=== PATIENT | female | born 1970 | race Caucasian/White ===

== ENCOUNTER 2024-01-12 08:24 | Inpatient (IN) | payer MEDICAID, OTHER ==
[~2024-01-12] VITALS: Ht 152.4 cm; Wt 70.0 kg
[2024-01-12] MEDS: ONDANSETRON HCL 4 MG/2 ML VIAL IV ONE (09:30)
[2024-01-12] MEDS: SODIUM CHLORIDE 0.9% 1,000 ML IV ONE ×2 (09:32→15:47)
[2024-01-12] MEDS: MORPHINE SULFATE 4 MG/ML SYR/VIAL IV ONE (09:36)
[2024-01-12] MEDS: FAMOTIDINE (10MG/ML) 2ML VL IV ONE (09:36)
[2024-01-12 09:39] LABS: Urine Bacteria FEW /hpf (None Seen); Urine Blood 3+ /uL (Negative); Urine Clarity Turbid (Clear); Urine Color Light-Yellow (Yellow); Urine Mucus FEW (None Seen); Urine Protein, UAD 1+ (Negative); Urine Specific Gravity 1.024 (1.001-1.035); Urine Urobilinogen Normal (Negative); Urine WBC 125 /hpf (0 - 5)
[2024-01-12 09:41] VITALS: PULSE 79; RESP 61; O2SAT 99
[2024-01-12 09:57] LABS: Basophils # (auto) 0 10 ^3/uL (0-0.2); Basophils % (auto) 0.4 % (0.0-2.0); Eosinophils # (auto) 0.1 10 ^3/uL (0-0.8); Eosinophils % (auto) 0.9 % (0.0-7.0); Hematocrit 41.8 % (36.0-46.0); Hemoglobin 13.7 g/dL (12.2-16.2); Lymphocytes % (auto) 10.6 % (10.0-50.0); Mean Corpuscular Hemoglobin 26.8 pg (28.0-32.0); Mean Corpuscular Hgb Conc. 32.8 g/dL (32.0-36.0); Mean Corpuscular Volume 81.9 fL (80.0-100.0); Monocytes # (auto) 0.6 10 ^3/uL (0-1.3); Monocytes % (auto) 5.7 % (0.0-12.0); Neutrophils # (auto) 8.1 10 ^3/uL (1.6-8.6); Neutrophils % (auto) 82.4 % (37.0-80.0); Platelet Count (auto) 336 10^3/uL (140-450); Red Cell Distribution Width 14.7 % (11.8-14.3); White Blood Cell 9.8 10^3/uL (4.4-10.8)
[2024-01-12] MEDS ORDERED: IOHEXOL 300 MG/ML 100ML BOTTLE IJ ONE (10:14)
[2024-01-12 10:34] LABS: Alanine Aminotransferase 160 U/L (7-40); Albumin 4.9 g/dL (3.2-4.8); Alkaline Phosphatase 213 U/L (46-116); Anion Gap 7 (5-15); Aspartate Aminotransferase 34 U/L (13-40); BUN/Creatinine Ratio 15.3 (10.0-20.0); Blood Urea Nitrogen 15 mg/dL (9-23); Calcium 9.9 mg/dL (8.7-10.4); Carbon Dioxide 24 mmol/L (20-30); Chloride 108 mmol/L (98-107); Glucose 147 mg/dL (74-106); Lipase 42 U/L (12-53); Potassium 3.9 mmol/L (3.5-5.1); Sodium 139 mmol/L (136-145)
[2024-01-12 10:35] LABS: Bilirubin, Total 0.4 mg/dL (0.2-1.0); Total Protein 7.6 g/dL (5.7-8.2)
[2024-01-12] MEDS: cefTRIAXone 1GM/50ML D5W 50 ML IV ONE (15:59)
[2024-01-12] MEDS ORDERED: hydrALAZINE HCL 20 MG/ML VL IV PRN (17:00)
[2024-01-12] MEDS: SODIUM CHLORIDE 0.9% 1,000 ML IV SCH (17:51)
[2024-01-12] MEDS: MELATONIN 5 MG TAB PO ONE (19:47)
[2024-01-12] MEDS: ONDANSETRON HCL 4 MG/2 ML VIAL IV PRN (20:39)
[2024-01-12] MEDS: MORPHINE SULFATE INJ 2 MG/ml SYRG IV PRN (20:47)
[2024-01-12 22:00] VITALS: BP 127/72; PULSE 74; RESP 18; TEMP 99.2; O2SAT 93
[2024-01-12 22:01] VITALS: BP 127/72; PULSE 74; RESP 18; TEMP 99.2; O2SAT 93
[2024-01-12] MEDS ORDERED: CIPR-214 PO (22:24)
[2024-01-13 05:00] VITALS: BP 114/63; PULSE 76; RESP 19; TEMP 98.8; O2SAT 93
[2024-01-13 06:32] LABS: Basophils # (auto) 0 10 ^3/uL (0-0.2); Basophils % (auto) 0.4 % (0.0-2.0); Eosinophils # (auto) 0.1 10 ^3/uL (0-0.8); Eosinophils % (auto) 0.9 % (0.0-7.0); Hematocrit 36.7 % (36.0-46.0); Hemoglobin 12.5 g/dL (12.2-16.2); Lymphocytes % (auto) 22.5 % (10.0-50.0); Mean Corpuscular Hemoglobin 27.4 pg (28.0-32.0); Mean Corpuscular Volume 80.6 fL (80.0-100.0); Monocytes # (auto) 0.8 10 ^3/uL (0-1.3); Monocytes % (auto) 9.4 % (0.0-12.0); Neutrophils # (auto) 5.8 10 ^3/uL (1.6-8.6); Neutrophils % (auto) 66.8 % (37.0-80.0); Platelet Count (auto) 322 10^3/uL (140-450); Red Blood Cells 4.56 10^6/uL (4.0-5.20); Red Cell Distribution Width 14.7 % (11.8-14.3); White Blood Cell 8.7 10^3/uL (4.4-10.8)
[2024-01-13 06:38] LABS: Chloride 108 mmol/L (98-107); Potassium 3.3 mmol/L (3.5-5.1); Sodium 142 mmol/L (136-145)
[2024-01-13 06:39] LABS: Anion Gap 9 (5-15); Carbon Dioxide 25 mmol/L (20-30)
[2024-01-13 06:44] LABS: Glucose 107 mg/dL (74-106)
[2024-01-13 06:45] LABS: BUN/Creatinine Ratio 11.8 (10.0-20.0); Blood Urea Nitrogen 11 mg/dL (9-23)
[2024-01-13] MEDS: HYDROcodone-ACET 5/325MG TAB PO PRN (08:50)
[2024-01-13] MEDS: cefTRIAXone 1GM/50ML D5W 50 ML IV SCH (08:54)
[2024-01-13 09:00] VITALS: BP 137/66; PULSE 71; RESP 18; TEMP 99; O2SAT 95
[2024-01-13] MEDS: POTASSIUM CHL 20 Meq TABLET PO ONE (09:23)
[2024-01-13 11:39] VITALS: BP 155/83; PULSE 75; RESP 14; TEMP 99.2; O2SAT 94
[2024-01-13 17:00] VITALS: BP 149/80; PULSE 73; RESP 18; TEMP 98.3; O2SAT 93
[2024-01-13] MEDS: SODIUM CHLORIDE 0.9% 1,000 ML IV SCH (20:00)
[2024-01-13] MEDS: amLODIPine BESYLATE 5 MG TAB PO ONE (20:00)
[2024-01-13 21:23] VITALS: BP 137/69; PULSE 75; RESP 20; TEMP 99.4; O2SAT 91
[2024-01-14] VITALS (7 sets, daily range): BP systolic 130–155; BP diastolic 74–95; PULSE 71–90; RESP 17–20; TEMP 98–99.6; O2SAT 90–95
[2024-01-14 06:22] LABS: Basophils # (auto) 0 10 ^3/uL (0-0.2); Basophils % (auto) 0.2 % (0.0-2.0); Lymphocytes # (auto) 1.2 10 ^3/uL (0.4-5.4)
[2024-01-14 06:23] LABS: Eosinophils # (auto) 0 10 ^3/uL (0-0.8); Eosinophils % (auto) 0.3 % (0.0-7.0); Hematocrit 37.7 % (36.0-46.0); Hemoglobin 12.7 g/dL (12.2-16.2); Lymphocytes % (auto) 9.1 % (10.0-50.0); Mean Corpuscular Hemoglobin 27.1 pg (28.0-32.0); Mean Corpuscular Hgb Conc. 33.7 g/dL (32.0-36.0); Mean Corpuscular Volume 80.5 fL (80.0-100.0); Monocytes # (auto) 0.7 10 ^3/uL (0-1.3); Monocytes % (auto) 5.6 % (0.0-12.0); Neutrophils % (auto) 84.8 % (37.0-80.0); Nucleated Red Blood Cells % 0.1 %; Platelet Count (auto) 353 10^3/uL (140-450); Red Blood Cells 4.68 10^6/uL (4.0-5.20); Red Cell Distribution Width 14.6 % (11.8-14.3); White Blood Cell 12.9 10^3/uL (4.4-10.8)
[2024-01-14 06:29] LABS: Alanine Aminotransferase 79 U/L (7-40); Albumin 4.3 g/dL (3.2-4.8); Alkaline Phosphatase 149 U/L (46-116); Anion Gap 9 (5-15); Aspartate Aminotransferase 22 U/L (13-40); BUN/Creatinine Ratio 8.8 (10.0-20.0); Bilirubin, Total 0.5 mg/dL (0.2-1.0); Blood Urea Nitrogen 8 mg/dL (9-23); Calcium 9.3 mg/dL (8.7-10.4); Carbon Dioxide 24 mmol/L (20-31); Chloride 104 mmol/L (98-107); Glucose 115 mg/dL (74-106); Potassium 3.5 mmol/L (3.5-5.1); Sodium 137 mmol/L (136-145); Total Protein 6.7 g/dL (5.7-8.2)
[2024-01-14] MEDS: amLODIPine BESYLATE 5 MG TAB PO ONE (09:30)
[2024-01-14] MEDS: LOSARTAN POTASSIUM 50 MG TAB PO ONE (19:00)
[2024-01-14] MEDS: NIFEdipine ER 30 MG TAB PO SCH (22:54)
[2024-01-15 01:00] VITALS: BP 131/75; PULSE 86; RESP 18; TEMP 98.5; O2SAT 91
[2024-01-15 05:00] VITALS: BP 96/33; PULSE 68; RESP 18; TEMP 98.2; O2SAT 93
[2024-01-15 06:58] LABS: Basophils # (auto) 0 10 ^3/uL (0-0.2); Basophils % (auto) 0.3 % (0.0-2.0); Eosinophils # (auto) 0.3 10 ^3/uL (0-0.8); Eosinophils % (auto) 3.4 % (0.0-7.0); Hematocrit 37.9 % (36.0-46.0); Hemoglobin 12.8 g/dL (12.2-16.2); Lymphocytes # (auto) 1.7 10 ^3/uL (0.4-5.4); Lymphocytes % (auto) 17.5 % (10.0-50.0); Mean Corpuscular Hgb Conc. 33.7 g/dL (32.0-36.0); Mean Corpuscular Volume 80.4 fL (80.0-100.0); Monocytes # (auto) 0.8 10 ^3/uL (0-1.3); Monocytes % (auto) 8.6 % (0.0-12.0); Neutrophils # (auto) 6.7 10 ^3/uL (1.6-8.6); Neutrophils % (auto) 70.2 % (37.0-80.0); Platelet Count (auto) 327 10^3/uL (140-450); Red Blood Cells 4.72 10^6/uL (4.0-5.20); Red Cell Distribution Width 14.3 % (11.8-14.3); White Blood Cell 9.6 10^3/uL (4.4-10.8)
[2024-01-15 07:22] LABS: Alanine Aminotransferase 54 U/L (7-40); Albumin 4.1 g/dL (3.2-4.8); Alkaline Phosphatase 131 U/L (46-116); Anion Gap 10 (5-15); Aspartate Aminotransferase 14 U/L (13-40); BUN/Creatinine Ratio 13.7 (10.0-20.0); Bilirubin, Total 0.4 mg/dL (0.2-1.0); Blood Urea Nitrogen 10 mg/dL (9-23); Calcium 9.2 mg/dL (8.7-10.4); Carbon Dioxide 26 mmol/L (20-31); Chloride 104 mmol/L (98-107); Glucose 99 mg/dL (74-106); Potassium 3.1 mmol/L (3.5-5.1); Sodium 140 mmol/L (136-145); Total Protein 6.4 g/dL (5.7-8.2)
[2024-01-15 07:30] VITALS: PULSE 90; RESP 18; O2SAT 93
[2024-01-15 09:00] VITALS: BP 97/52; PULSE 72; RESP 10; TEMP 98.2; O2SAT 89
[2024-01-15] MEDS ORDERED: amLODIPine BESYLATE 5 MG TAB PO SCH (10:00)
[2024-01-15] MEDS: POTASSIUM CHL 20 Meq TABLET PO ONE (10:30)
[2024-01-15] MEDS ORDERED: CIPR250T3 PO (10:40)
[2024-01-15 10:42] VITALS: BP 97/52; TEMP 36.8
== END 2024-01-15 11:15 | disposition home or self-care (01) | DRG 463 ==
LOC: ER 08:24 → OVERFLOW 16:55 → WEST WING 16:55
PROVIDERS: ADMIT Internal Medicine Geriatric Medicine; ATTEND Internal Medicine Geriatric Medicine
DX: N10 Acute pyelonephritis (principal); I11.9 Hypertensive heart disease without heart failure; K76.0 Fatty (change of) liver, not elsewhere classified; E87.6 Hypokalemia; I16.0 Hypertensive urgency; N28.1 Cyst of kidney, acquired; R74.01 Elevation of levels of liver transaminase levels; Z79.899 Other long term (current) drug therapy
CPT/HCPCS: 36415; 74177; 80048; 80053; 81001; 83036; 83690; 85025; 86141; 87086; 96365; 96375; G0378; J2405; J3490